=== PATIENT | male | born 1945 | race African-American/Black ===

== ENCOUNTER 2017-07-03 21:57 | Emergency (ER) | payer OTHER, MEDICAID ==
[~2017-07-03 21:57] MED LIST: AMLO10 PO; HYDR-2768 PO; ROBA750T3 PO; VASO10TA8 PO
[2017-07-03 21:58] VITALS: BP 186/100; PULSE 78; RESP 16; TEMP 98.9; O2SAT 96
[2017-07-03] MEDS ORDERED: AMLO10 PO (22:25)
[2017-07-03] MEDS ORDERED: HYDR25TA5 PO (22:25)
[2017-07-03] MEDS ORDERED: VASO10TA8 PO (22:25)
[2017-07-03] MEDS ORDERED: HYDR7.5T76 PO (22:31)
[2017-07-03] MEDS ORDERED: TETANUS/DIPHTHERIA TOXOID ADULT 0.5 ML VIAL IM ONE (22:45)
--- NOTE | 2017-07-03 22:45 | PD ---
HPI Chief Complaint: Bite or Sting Time Seen by Provider: 22:43 Travel History International Travel<30 days: No Contact w/Intl Traveler<30days: No Traveled to known affect area: No History of Present Illness HPI 71-year-old black male presents to department for evaluation of a dog bite. Patient states that prior to arrival a family pet bit him in the back of his right thigh. The patient states that he has not had a tetanus shot over 5 years. Pain is minimal. No other injuries. It is assumed that the dog is up- to-date with shots. He was acting normal. PFSH Past Medical History Cancer: No Cardiovascular Problems: Yes Diabetes: Yes Patient Takes Glucophage: No Diminished Hearing: No Endocrine: Yes Gastrointestinal Disorders: Yes GERD: Yes Genitourinary: Yes Hypertension: Yes Implanted Vascular Access Dvce: No Kidney Stones: Yes Musculoskeletal: Yes (CHRONIC BACK PAIN) Neurologic: No Psychiatric: No Reproductive: No Respiratory: Yes Immunizations Current: No Past Surgical History Abdominal Surgery: Yes (HERNIA REPAIR) Genitourinary Surgery: Yes (KIDNEY STONE) Pacemaker: No Other Surgery: Yes Social History Alcohol Use: No Tobacco Use: Yes (3-4 cigs a day) Substance Use: Yes (THC every now and then) Allergies-Medications (Allergen,Severity, Reaction): Coded Allergies: No Known Allergies (Verified , 07/03/17) Reported Meds & Prescriptions Reported Meds & Active Scripts Active Reported Hydrocodone-Ibuprofen 7.5-200 Mg Tab 1 Tab PO Q6H PRN Hydrochlorothiazide 25 Mg Tab 25 Mg PO DAILY Norvasc (Amlodipine Besylate) 10 Mg Tab 10 Mg PO DAILY Vasotec (Enalapril Maleate) 10 Mg Tab 10 Mg PO DAILY Review of Systems Except as stated in HPI: all other systems reviewed are Neg Physical Exam Narrative GENERAL: This is a well-nourished, well-developed patient, in no apparent distress. SKIN: No rashes, ecchymoses or lesions. Warm and dry. HEAD: Atraumatic. Normocephalic. EYES: PERRL, EOMI, no discharge or injection. No scleral icterus. EARS: Clear NOSE: Nasal turbinates appear normal. THROAT: Mucosa pink and moist. Airway patent. NECK: Trachea midline. supple, moves head freely. LUNGS: Clear to auscultation. CV: Regular in rhythm. ABDOMEN: Soft nontender. EXT: No clubbing cyanosis or edema. Patient has a superficial tooth abrasion puncture to the posterior lateral right thigh. No deep injury. Neurovascular intact. Data Data Last Documented VS Vital Signs Date Time Temp Pulse Resp B/P Pulse Ox O2 Delivery O2 Flow Rate FiO2 07/03/17 22:32 16 07/03/17 21:58 98.9 78 186/100 96 Room Air Orders Tetanus/Diphtheria Tox Adult (Tetanus/Di (07/03/17 22:45) MDM Medical Decision Making Medical Screen Exam Complete: Yes Emergency Medical Condition: Yes Medical Record Reviewed: Yes Differential Diagnosis MDM: High Differential diagnoses: Fracture, sprain, strain, dislocation, contusion, neurovascular injury, dog bite Narrative Course Patient's dog bite is superficial. The wound is cleansed with soap and water and Neosporin applied. Tetanus updated. Rabies prophylaxis is not indicated. This is dog bite right leg Diagnosis Primary Impression: Dog bite of right lower leg Qualified Code: S81.851A - Dog bite of right lower leg, initial encounter Patient Instructions: General Instructions Additional Instructions: Rest. Elevation. keep clean and dry. Ice pack tonight. Daily wound care with soap, water and Neosporin. Three Advil every 6 hours. As needed for pain Follow-up with a primary care doctor in one week. Return to the ER for any problems. Med/Other Pt SpecificInfo: Wound Care Disposition: 01 DISCHARGE HOME Condition: Stable Eliazar Resendez Jul 03, 2017 22:45
== END 2017-07-03 23:53 | disposition home or self-care (01) ==
LOC: NEPD 21:57
DX: S81.851A Open bite, right lower leg, initial encounter (principal); F17.210 Nicotine dependence, cigarettes, uncomplicated; W54.0XXA Bitten by dog, initial encounter; Z23 Encounter for immunization
CPT/HCPCS: 90471; 90714